=== PATIENT | female | born 1945 | race Caucasian/White ===

== ENCOUNTER 2016-11-06 10:41 | Outpatient (CLI) | payer MEDICARE, BC ==
[~2016-11-06] VITALS: Ht 157.5 cm; Wt 74.5 kg
--- NOTE | ~2016-11-06 | OP ---
PATIENT NAME: GUERO GILMORE MEDICAL RECORD: [id number] :43 LOCATION:D.CAT ADMISSION DATE: SURGEON: WEI MALDONADO MD DATE OF OPERATION: 11/06/2016 PROCEDURE: Left heart catheterization, selective coronary angiography, right femoral approach. CATHETERS: A 5-Hebrew sheath, 5/4 left and right Clem, 5/4 pig. The procedure was well tolerated. The patient returned to the carlin, sheath removed. ExoSeal device placed. FINDINGS: Left ventriculography in 30-degree WOODS view: Normal wall motion, normal systolic function. CORONARY ANATOMY: Left main: Left main is free of disease. LAD: Free of disease in the diagonal system. CIRCUMFLEX: Free of disease in the marginal system. RIGHT CORONARY ARTERY: Dominant artery, gives rise to PDA, free of disease. IMPRESSION: Normal left ventricular systolic function. Normal coronary anatomy. TRANSINT:[id number] Voice Confirmation ID: [id number] DOCUMENT ID: [id number] WEI MALDONADO MD CC: [id number] DICTATION DATE: 11/06/16 1344 BAKERY DECORATOR: 11/06/16 2248 DEP CLI 11/06/16 [facility] [address] [id number]
--- NOTE | ~2016-11-06 | HEMODYNAMI ---
PATIENT:GUERO GILMORE MEDICAL RECORD: [id number] : 43 LOCATION:ALISA ADMISSION DATE: 11/06/16 Generatedon:11/06/201613:42 Patient name: GUERO GILMORE Patient #: [id number] SSN: : 1945 Date of study: 11/06/2016 Page: Of Hemodynamic Procedure Report Patient Data Patient Demographics Procedure consent was obtained First Name: GUERO Gender: Female Last Name: DEIRDRE : 1945 Patient #: [id number] Age: 71 year(s) Race: Additional ID: [id number] Contact details [address]: [address] [place] [address] State: [place] City: [place] Zip code: [address] Past Medical History Allergies Allergen Reaction Date Comments Reported Other allergy 11/06/2016 [facility] Admission Admission Data Admission Date: 11/06/2016 Admission Time: 10:41 Lab Results Lab Result Date: 11/06/2016 Lab Result Time: 11:20 Biochemistry Name Units Result Min Max BUN mg/dl 13 --(--*-)-- 7 18 Creatinine mg/dl 1.1 --(--*-)-- 0.6 1.3 CBC Name Units Result Min Max Hematocrit % 44.1 --(*---)-- 42 54 Hemoglobin g/dl 14.9 --(-*--)-- 13.5 17.5 Procedure Procedure Types Cath Procedure Diagnostic Procedure LHC LHC w/Coronaries Cardioversion Miscellaneous Procedures Moderate Sedation up to 15 minutes Procedure Description Procedure Date Procedure Date: 11/06/2016 Procedure Start Time: 13:28 Procedure End Time: 13:41 Procedure Staff Name Function Guy Da Silva RN Nurse Thomas Andino MD Performing Physician Familia Walden RT Monitor Ramiro Aguilera RT Scrub Procedure Data Cath Procedure Fluoroscopy Diagnostic fluoroscopy Total fluoroscopy Time: 1.2 time: 1.2 min min Diagnostic fluoroscopy Total fluoroscopy dose: 352 dose: 352 mGy mGy Contrast Material Contrast Material Type Amount (ml) Isovue 300 82 Entry Location Entry Primary Successful Side Size Upsize Upsize Entry Closure Succes sful Closure Location (Fr) 1 (Fr) 2 (Fr) Remarks Device Remarks Femoral Right 5 Fr Exoseal artery Estimated blood loss: 5 ml Diagnostic catheters Device Type Used For End Catheter Placement Cordis 5Fr JL 4.0 Procedure Catheter (MP) Cordis 5Fr 3DRC Catheter Procedure (MP) Cordis 5Fr Pigtail Procedure Catheter (MP) Procedure Complications No complications Procedure Medications Medication Administration Route Dosage Oxygen NC 2 l/min Heparin Flush Bag added to field 2 bags (1000units/500ml NS) Lidocaine 2% added to field 20 Refer to Anesthesia Notes for Sedation Medications Hemodynamics Rest HGB: 14.9 (g/dl) Heart Rate: 110 (bpm) Pressure Samples Time Site Value (mmHg) Purpose Heart Use Rate(bpm) 13:35 LV 144/-14,13 Snapshot 68 Gradients Valve Time Site Site Mean SEP/DFP Peak To Heart Use 1 2 (mmHg) (sec/min) Peak Rate (mmHg) (bpm) Aortic 13:35 LV AO 69 Snapshots Pre Cath Intra NCS Post Cath Vital Signs Time Heart Resp SPO2 etCO2 PP5eqtn Respiration NIBP (mmHg) Rhythm Desmond n Sedation Rate (ipm) (%) (mmHg) (mmHg) (CO2) (ipm) Status Leve l (bpm) 13:19:18 129 19 100 24.7 1.5 13 170/116(131) A-Fib 0 ( 11) 10(A) , No pain 13:23:36 118 16 99 33 4.5 16 172/115(147) A-Fib 0 ( 11) 10(A) , No pain 13:27:48 120 17 100 0 0 141/106(121) NSR 0 ( 11) 10(A) , No pain 13:32:06 67 16 98 0 0 134/78(110) NSR 0 ( 11) 10(A) , No pain 13:36:22 69 18 100 13.5 0 15 136/79(108) NSR 0 ( 11) 10(A) , No pain 13:40:36 69 15 100 20.2 1.5 12 141/84(112) NSR 0 ( 11) 10(A) , No pain Medications Time Medication Route Dose Verified Delivered Reason Notes Effec tiveness by by 13:17:12 Oxygen NC 2 Thomas Tovar Per l/min [facility] sapp MD 13:17:21 Heparin Flush added 2 Thomas [facility] ([facility]/500[facility] field MD TONEY NS) 13:17:30 Lidocaine 2% added 20ml Thomas Guzman used for to [facility] MD TONEY 13:20:39 Refer to Guy Tovar Per Anesthesia Notes Avinash Da Silva RN physician for Sedation RN Medications Procedure Log Time Note 13:00:14 Ramiro Aguilera RT(R) sent for patient. Start room use. 13:00:15 Time tracking: Regular hours 13:00:20 Plan of Care:Hemodynamics will remain stable., Cardiac rhythm will remain stable., Comfort level will be maintained., Respiratory function will remain adequate., Patient/ family verbilizes understanding of procedure., Procedure tolerated without complication., Recovers from procedure without complications.. 13:07:16 Patient received from Pre/Post Procedure Room to [facility] 1 Alert and oriented. Tansferred to table in Supine position. 13:07:17 Warm blankets applied, and marie hugger turned on for patient comfort. 13:07:17 Correct patient and procedure confirmed by team. 13:07:19 Signed procedure consent form obtained from patient. 13:07:20 ECG and BP/O2 sat monitors applied to patient. 13:16:57 Vital chart was started 13:17:12 Oxygen 2 l/min NC was administered by Guy Da Silva RN; Per physician; 13:17:21 Heparin Flush Bag (1000units/500ml NS) 2 bags added to field was administered by Thomas Andino MD; used for procedure; 13:17:30 Lidocaine 2% 20ml vial added to field was administered by Thomas Andino MD; used for procedure; 13:18:40 Baseline sample Acquired. 13:18:45 Rhythm: atrial fibrillation 13:18:47 Full Disclosure recording started 13:19:20 H&P Date Dictated: 10/30/2016 Within 30 days and on chart., H&P Addendum completed by physician on day of procedure. (MUST COMPLETE FOR ALL OUTPATIENTS). 13:20:39 Refer to Anesthesia Notes for Sedation Medications was administered by Guy Da Silva RN; Per physician; 13:23:06 Pre-procedure instructions explained to patient. 13:23:06 Pre-op teaching completed and patient verbalized understanding. 13:23:09 Family in waiting room. 13:23:11 Patient NPO since Midnight. 13:23:32 Dr. Ferreira present and monitoring patient for TIVA. 13:23:55 Patient allergic to Other allergyampicillin 13:23:57 Is the patient allergic to Iodine/contrast media? No. 13:23:58 Is patient on blood thinner?Yes 13:24:09 ACC The patient was administered the following blood thiners within the last 24 hours: Xarelto 13:24:11 Patient diabetic? No. 13:24:15 Previous problem with sedation/anesthesia? No ? 13:24:16 Snore? Yes 13:24:17 Sleep apnea? No 13:24:18 Deviated septum? No 13:24:19 Opens mouth fully? Yes 13:24:20 Sticks out tongue? Yes 13:24:22 Airway obstruction? No ? 13:24:27 Dentures? Yes in tight 13:24:32 Pre procedure: right dorsailis pedis pulse 1+ Palpable, but thready & weak; easily obliterated 13:24:35 Patient pain scale 0/10 ?. 13:24:41 IV patent on arrival in left wrist with 0.9% NaCl at O. 13:25:15 Lab Result : Creatinine 1.1 mg/dl 13:25:15 Lab Result : BUN 13 mg/dl 13:25:15 Lab Result : Hemoglobin 14.9 g/dl 13:25:15 Lab Result : Hematocrit 44.1 % 13:25:18 Lab results completed and on chart. 13:25:21 Right groin area was prepped with chlora-prep and draped in sterile fashion 13:25:22 Alarms reviewed by R. N. 13:25:22 Sharps counted by scrub and verified by R.N. 13:25:25 Use device set Femoral Dx 13:25:26 Tegaderm 4 x 4 opened to sterile field. 13:25:27 Acist Manifold opened to sterile field. 13:25:28 Acist Hand Control opened to sterile field. 13:25:29 Acist Syringe opened to sterile field. 13:25:30 Bag Decanter opened to sterile field. 13:25:32 Medline Cath Pack opened to sterile field. 13:25:33 Terumo 5Fr [place] Sheath opened to sterile field. 13:25:33 St Víctor 260cm J .035 wire opened to sterile field. 13:25:34 Diagnostic Infinity 5Fr Multipack catheter opened to sterile field. 13::42 Physician arrived 13:25:42 --------ALL STOP TIME OUT------ 13:25:43 Final Timeout: patient, procedure, and site verified with staff and physician. All members of the team are in agreement. 13:25:44 Right groin site verified by team. 13:25:46 Physical assessment completed. ASA score P 2 - A patient with mild systemic disease as per Thomas Andino MD. 13:25:51 Sedation plan: IV Moderate Sedation Versed, Fentanyl 13:27:54 Quick Combo opened to sterile field. 13:28:08 Procedure started. 13:28:09 Quick combo pads placed on patients chest and back. 13:28:10 Defibrillator synced and charged to 200 Joules. 13:28:11 Shock delivered. 13:28:14 Patient cardioverted to sinus rhythm . 13:28:25 Local anesthetic to right femoral artery with Lidocaine 2% by Thomas Andino MD.INITIAL ACCESS ONLY 13:29:33 A 5 Fr sheath was inserted into the Right Femoral artery 13:30:49 A Cordis 5Fr JL 4.0 Catheter (MP) was advanced over the wire and used for Procedure. 13:31:21 LCA angiography performed. 13:32:39 Catheter exchanged over wire. 13:32:50 A Cordis 5Fr 3DRC Catheter (MP) was advanced over the wire and used for Procedure. 13:33:37 RCA angiography performed. 13:33:54 Catheter exchanged over wire. 13:33:58 A Cordis 5Fr Pigtail Catheter (MP) was advanced over the wire and used for Procedure. 13:35:20 LV hemodynamics recorded. 13:35:25 Injector settings: Ml/sec: 10, Volume: 20, 13:35:40 EF : 55 % 13:36:49 Catheter removed. 13:36:57 Cordis 5Fr Exoseal opened to sterile field. 13:37:07 Sheath removed intact; hemostasis achieved with Exoseal to the Right Femoral artery. 13:37:09 Procedure ended.(Physican Out) 13:37:21 Fluoroscopy time 01.20 minutes. 13:37:26 Fluoroscopy dose: 352 mGy 13:37:26 Flurop Dose total: 352 13:37:31 Contrast amount:Isovue 300 82ml. 13:37:32 Sharps counted by scrub and verified by R.N. 13:37:36 Insertion/operative site no bleeding no hematoma. 13:37:40 Post-op/insertion site Right Femoral artery dressed using a 4 x 4 and Tegaderm. 13:37:43 Post right femoral artery:stable, soft, clean and dry 13:37:45 Post Procedure Pulses reassessed and unchanged 13:37:47 Post-procedure physical assessment completed. ASA score P 2 - A patient with mild systemic disease as per Thomas Andino MD. 13:37:56 Post procedure rhythm: sinus rhythm 13:37:59 Estimated blood loss: 5 ml 13:38:01 Post procedure instruction explained to patient.Patient verbalizes understanding. 13:38:01 Patient needs reinforcement of post procedure teaching. 13:39:49 Procedure type changed to Cath procedure, Diagnostic procedure, LHC, LHC w/Coronaries, Cardioversion, Miscellaneous Procedures, Moderate Sedation up to 15 minutes 13:39:50 Procedure and supply charges have been captured, reviewed, submitted and are correct. 13:41:42 Procedure Complication : No complications 13:41:44 Vital chart was stopped 13:41:46 See physician's report for complete and final results. 13:41:47 Report given to Pre/Post Procedure Room. 13:41:50 Patient transfered to Pre/Post Procedure Room with Stretcher. 13:41:52 Procedure ended. 13:41:52 Full Disclosure recording stopped 13:41:57 End room use (Document Last) Device Usage Item Name Manufacture Quantity Catalog Hospital Part Current Minimal Lot# / Number Charge Number Stock Stock Serial# Code Tegaderm 4 3M 1 [id number] [id number] [id number] 5 x 4 Acist Acist 1 55196 784925 234682 151311 5 Manifold [employer] Inc Acist Hand Acist 1 59463 507577 669955 455176 5 Control [employer] Inc Acist Acist 1 46113 246685 274261 624611 20 Syringe Medical Systems Inc Bag Microtek 1 [facility] 750687 58041 193515 5 [employer] Medline Cardinal 1 [id number] 860768 27326 941111 5 Cath Pack Health Terumo 5Fr Terumo 1 [id number] 068697 092973 723434 [address] V[address]ctor 1 988448 833284 896986 688296 30 260cm J .035 wire Diagnostic Cardinal 1 [id number] 156029 17945 029349 30 Infinity Health 5Fr Multipack catheter [facility] [employer] [facility] 1 [id number] 016547 004069 463096 5 Combo Cordis 5Fr Cardinal 1 [id number] 5 JL 4.0 Health Catheter (MP) Cordis 5Fr Cardinal 1 593412 5 3DRC Health Catheter (MP) Cordis 5Fr Cardinal 1 118477 5 Pigtail Health Catheter (MP) Cordis 5Fr Cardinal 1 EX500 919502 861653 913507 10 [employer] [facility] [employer] Signature Audit [place] Stage Time Signature Unsigned Intra-Procedure 11/06/2016 Familia Walden 1:42:13 PM RT(R) Signatures Monitor : Familia Walden RT Signature : Date : Time : [id number] [place] [address]
--- NOTE | ~2016-11-06 | OP ---
PATIENT NAME: KISHA KUMAR MEDICAL RECORD: [id number] :43 LOCATION:D.CAT ADMISSION DATE: SURGEON: WEI MALDONADO MD DATE OF OPERATION: 11/06/2016 Cardioversion Note DESCRIPTION OF PROCEDURE: After general sedation via TIVA via anesthesia, single synchronized shock at 200 joules successful in converting atrial fibrillation to normal sinus rhythm. IMPRESSION: Successful cardioversion note on Kisha Kumar. COMPLICATIONS: None. TRANSINT:[id number] Voice Confirmation ID: [id number] DOCUMENT ID: [id number] WEI MALDONADO MD CC: [id number] DICTATION DATE: 11/06/16 1343 MANAGER HEAVY EQUIPMENT: 11/06/16 2246 DEP CLI 11/06/[address] [id number]
[2016-11-06] MEDS ORDERED: CORDARONE200 MG PO (10:55)
[2016-11-06] MEDS ORDERED: XARELTO20 MG PO (10:55)
[2016-11-06] MEDS ORDERED: CARTIA XT240 MG PO (10:56)
[2016-11-06 10:58] VITALS: BP 153/104; Ht 157.5 cm; Wt 74.5 kg
[2016-11-06 11:42] LABS: HEMATOCRIT 44.1 % (36.0-48.0); HEMOGLOBIN 14.9 g/dL (12-16); LYMPHOCYTES 26.6 % (15-50); MCH 30.2 pg (26.0-34.0); MCHC 33.8 g/dL (31.0-37.0); MCV 89.5 fL (80.0-100.0); MEAN PLATELET VOLUME 9.2 fL (7.4-10.4); NEUTROPHILS 67.5 % (40-80); PLATELET COUNT 354 10x3/uL (130-400); RBC 4.93 10x6/uL (4.00-5.40); RDW 14.5 % (11.5-14.5); WBC 7.9 10x3/uL (4.8-10.8)
[2016-11-06 11:56] LABS: INR 1.04 (0.85-1.17); PROTIME 13.5 SECONDS (11.6-15.0)
[2016-11-06 12:17] LABS: ANION GAP 14.9 mmol/L (8-16); CALCIUM 9.5 mg/dL (8.5-10.1); CARBON DIOXIDE 25.3 mmol/L (21.0-32.0); CREATININE - SERUM 1.1 mg/dL (0.6-1.3); POTASSIUM - SERUM 4.2 mmol/L (3.5-5.1)
--- NOTE | 2016-11-06 14:32 | NUR ---
1405 LYING FLAT, ALL VITALS WNL. R GROIN REMAINS C/D/I WITH NO HEMATOMA OR BLEEDING. FAMILY AT BEDSIDE. NO C/O CHEST APIN. PULSES PALP X 4.
--- NOTE | 2016-11-06 15:43 | NUR ---
HOB ELEVATED, PIV REMOVED FROM L WRIST WITH BANDAID APPLIED. UP TO BEDSIDE TO DRESS. R GROIN REMAINS C/D/I WITH NO HEMATOMA OR BLEEDING.
--- NOTE | 2016-11-06 15:58 | NUR ---
D/C INSTRUCTIONS DISCUSSED WITH PATIENT AND FRIEND AT BEDSIDE. WHEELED OUT VIA WHEELCHAIR.
== END 2016-11-06 16:03 | disposition home or self-care (01) ==
LOC: D.CATH 10:41
PROVIDERS: Internal Medicine Interventional Cardiology
DX: I48.91 Unspecified atrial fibrillation (principal); I20.9 Angina pectoris, unspecified